=== PATIENT | female | born 1970 | race Caucasian/White ===

== ENCOUNTER → 2018-09-25 | Outpatient (CLI) | payer SELFPAY ==
[2018-09-27 14:01] LABS: HPV Reflexed? NOT INDICATED
== END | disposition home or self-care (01) ==
LOC: LABSPEC 12:46
PROVIDERS: Referring Provider Obstetrics & Gynecology; Visit Provider Obstetrics & Gynecology
DX: Z12.4 Encounter for screening for malignant neoplasm of cervix (principal)
CPT/HCPCS: 87624; 88175; G0145

== ENCOUNTER → 2020-10-26 | Outpatient (CLI) | payer SELFPAY ==
--- NOTE | 2020-10-26 14:30 | CER_PTH ---
PATIENT: JIGNESH GARDUNO LOC: [facility] U#:[id number] AGE/SX: 50/F ROOM: RE10/26/[address]: Dr. Roger Landrum MD : 1970 BED: DIS: 10/26/2020 SPEC #: [id number] RECD: 10/27/20 09:51 STATUS: VIMAL EPPERSON #: [id number] CAITLIN: 10/26/20 14:[address]: Roger Landrum DEPT: SURGICAL PATHOLOGY RECD BY: Maureen Hector Tissues: Uterine cervix, NOS Procedures: Surgery Specimen Level IV HEADER OPERATION: Cervical biopsy PRE-OP DIAGNOSIS: Cervical lesion TISSUE SUBMITTED: Cervical biopsy MICROSCOPIC DIAGNOSIS Cervix, biopsy: Fragments of benign endocervix with mild chronic inflammation. AM:ellen 10/28/2020 MICROSCOPIC DESCRIPTION Slides are reviewed. GROSS DESCRIPTION Received in fixative is one container labeled with the patient's name and designated cervical biopsy. The specimen consists of multiple irregular fragments of light morales soft tissue that in aggregate measure 0.5 x 0.3 x 0.1 cm. The specimen is totally submitted in one cassette. / AM:ellen 10/27/20 TC:3 [facility]: [id number]
[2020-10-29 17:28] LABS: HPV Reflexed? NOT INDICATED
== END | disposition home or self-care (01) ==
LOC: LABSPEC 10-27 09:10
PROVIDERS: Visit Provider Obstetrics & Gynecology
DX: M99.81 Other biomechanical lesions of cervical region (principal)
CPT/HCPCS: 88175; 88305; G0145

== ENCOUNTER → 2022-03-22 | Outpatient (CLI) | payer SELFPAY ==
[2022-03-29 17:01] LABS: HPV APTIMA, High Risk Negative (Negative)
== END | disposition home or self-care (01) ==
PROVIDERS: Visit Provider Student in an Organized Health Care Education/Training Program
DX: Z12.4 Encounter for screening for malignant neoplasm of cervix (principal)
CPT/HCPCS: 87624; 88175; G0145

== ENCOUNTER → 2022-06-27 | Outpatient (CLI) | payer SELFPAY ==
[2022-07-04 18:21] LABS: HPV APTIMA, High Risk Negative (Negative)
== END | disposition home or self-care (01) ==
PROVIDERS: Visit Provider Student in an Organized Health Care Education/Training Program
DX: R87.615 Unsatisfactory cytologic smear of cervix (principal)
CPT/HCPCS: 87624; 88175; G0145

== ENCOUNTER → 2023-08-23 | Outpatient (CLI) | payer SELFPAY ==
--- NOTE | 2023-08-23 09:15 | RAD_ITS ---
INDICATION: LUQ PAIN,L PLEURTIC LIKE PAIN EXAMINATION/TECHNIQUE: X-RAY - XR Chest 2 Views COMPARISON: None available. FINDINGS: LINES/DEVICES: None. LUNGS: Lungs are symmetrically hyperexpanded with coarsened interstitium. Left blunted costophrenic angles on frontal view. Mild right costophrenic angle atelectasis or scarring. No other focal airspace consolidation. Mild peripheral scarring. No pneumothorax. MEDIASTINUM AND CARDIOVASCULAR STRUCTURES: Cardiac silhouette not enlarged. BONES AND SOFT TISSUES: Lateral curvature of the thoracolumbar spine. Moderate bridging osteophytes left lumbar spine.. RAD/Chest PA and Lateral IMPRESSION: Findings consistent with chronic obstructive pulmonary disease. Blunted left costophrenic angle on frontal view which may represent scarring, atelectasis, or focal airspace consolidation. Correlate for left lower lung pneumonia. No gross effusion is seen on lateral view. Radiographic follow-up recommended after treatment to ensure resolution. Comparison with prior imaging would be helpful if available. Electronically Signed: Salty Charles MD at 17:33 EDT ,
== END | disposition home or self-care (01) ==
PROVIDERS: PCP Family Medicine; Referring Provider Family Medicine; Visit Provider Family Medicine
DX: R10.12 Left upper quadrant pain (principal)
CPT/HCPCS: 71046

== ENCOUNTER → 2023-11-26 | Outpatient (CLI) | payer SELFPAY ==
--- NOTE | 2023-11-26 15:17 | CT_ITS ---
INDICATION: pleural effusion EXAMINATION: CT CHEST WITHOUT CONTRAST - CT Chest W/O Contrast Injection TECHNIQUE: Helically acquired images were obtained of the chest. A radiation dose optimization technique was used for this scan. IV Contrast dosage and agent: None. COMPARISON: None. FINDINGS: LUNGS, PLEURA AND LARGE AIRWAYS: Mild bronchiectatic changes and cicatricial atelectasis in the right lower lobe. Tiny calcified granuloma in the right middle lobe . Minor pleural-parenchymal scarring in the upper lobes. There is no pleural effusion. No pneumothorax. THYROID: No thyroid lesions. HEART AND PERICARDIUM: Heart size is normal. No pericardial effusion. CORONARY ARTERIES: Coronary artery calcification VESSELS: Thoracic aorta is not dilated. MEDIASTINUM AND CHIP: No mediastinal or hilar adenopathy. Esophagus is unremarkable. No hiatal hernia. UPPER ABDOMEN: No acute pathology. BONES: No suspicious lytic or blastic abnormality. CT/Chest without Contrast IMPRESSION: Mild bronchiectatic changes and cicatricial atelectasis in the right lower lobe. Electronically Signed: Manuel Tipton MD at 19:54 EDT Reading Location ID and State: [address] [place] [address] Tel , Service support ,
[2023-11-26 16:20] LABS: Erythrocyte Sedimentation Rate 5 mm/hr (0-30)
[2023-11-26 16:26] LABS: CRP < 2.90 mg/L (0.0-3.0)
[2023-11-28 12:09] LABS: ANTINUCLEAR ANTIBODIES DIRECT Positive (Negative)
== END | disposition home or self-care (01) ==
PROVIDERS: PCP Family Medicine; Referring Provider Internal Medicine Pulmonary Disease; Visit Provider Internal Medicine Pulmonary Disease
DX: R07.1 Chest pain on breathing (principal); J45.40 Moderate persistent asthma, uncomplicated; J91.8 Pleural effusion in other conditions classified elsewhere
CPT/HCPCS: 36415; 71250; 85652; 86038; 86140

== ENCOUNTER → 2024-10-15 | Outpatient (CLI) | payer SELFPAY ==
[2024-10-15 15:29] LABS: Absolute Lymphocyte Count 1.64 X10^3/uL (0.83-4.51); Absolute Neutrophil Count 3.5 X10^3/uL (2.0-7.7); Basophil# 0.04 X10^3/uL; Basophil% 0.7 % (0-1); Eosinophil# 0.27 X10^3/uL; Eosinophils% 4.6 % (0-5); Hematocrit 39.7 % (37-47); Hemoglobin 12.8 g/dL (12.0-15.0); Lymphocyte # 1.64 X10^3/ul (0.83-4.51); Lymphocyte % 27.7 % (19-41); Mean Corp Hgb Conc 32.2 g/dL (32-36); Mean Corpuscular Hgb 30.2 pg (27.0-32.0); Mean Corpuscular Volume 93.6 fL (81-99); Mean Platelet Vol. 9.2 fl (6.2-12.0); Monocyte% 8.4 % (0-10); NRBC Flagged by Analyzer 0 % (0-5); Neutrophil # 3.46 X10^3/uL (2.7-7.7); Neutrophil % 58.4 % (47-70); Platelet Count 218 K/mm3 (150-450); RBC Distribution Width CV 14.9 % (11.6-14.6); RBC Distribution Width SD 51.6 fl (35.1-43.9); Red Blood Count 4.24 M/mm3 (4.2-5.4); White Blood Count 5.9 K/mm3 (4.4-11.0)
== END | disposition home or self-care (01) ==
PROVIDERS: PCP Family Medicine; Referring Provider Internal Medicine Pulmonary Disease; Visit Provider Internal Medicine Pulmonary Disease
DX: R05.9 Cough, unspecified (principal)
CPT/HCPCS: 36415; 85025

== ENCOUNTER 2024-10-23 16:47 | Emergency (ER) | payer OTHER, SELFPAY ==
[2024-10-23 16:48] VITALS: BP 134/77; PULSE 91; RESP 16; TEMP 37; O2SAT 100; BMI 16.9
--- NOTE | 2024-10-23 17:01 | EX.ED.DYSGE1 ---
HPI <DOMITILA Agosto - Last Filed: 10/23/24 18:49> History of Present Illness Chief Complaint: Shortness of Breath Narrative Narrative: 54-year-old female with past medical history of recurrent bronchitis presents with shortness of breath. She has had 1 week of fever and cough with green sputum. Her temperatures been running around 100 to 101 ?F. She saw her book canvasser, Dr. Arana, 2 days ago and was prescribed a Z-Ludwig to use in addition to her long-acting inhaler. She is on day 3 of the Z-Ludwig. Today she was walking and had a small cough with phlegm and then felt acutely short of breath for less than a minute. No chest pain. She feels back to normal now. She has no smoking history. No cardiac history. No history of DVT/PE risk factors. PFSH <DOMITILA Agosto - Last Filed: 10/23/24 18:49> PFSH Allergy/AdvReac Type Severity Reaction Status Date / Time No Known Allergies Allergy Verified 10/23/24 16:47 Social History Smoking Status: Never smoker ROS <DOMITILA Agosto - Last Filed: 10/23/24 18:49> ROS ED ROS Narrative Constitutional: Negative for chills, malaise. CVS: Negative for palpitations, chest pain, syncope. Respiratory: Positive for shortness of breath, cough. No orthopnea. GI: Negative for abdominal pain, nausea, vomiting. EXAM <DOMITILA Agosto Last Filed: 10/23/24 18:49> Physical Exam Narrative Exam Narrative: CONST: Patient sitting in no acute distress. EYES: Normal inspection. NECK: Normal inspection. RESP: No respiratory distress, CTAB. CVS: Regular rate and rhythm, no murmur, no gallop. SKIN: Color normal, no rash, warm, dry, intact. EXTREMITIES: Normal appearance, no pedal edema. NEURO: Alert and answering questions appropriately. PSYCH: Normal affect. Const Vital Signs: 10/23/24 16:48 10/23/24 17:07 10/23/24 17:59 Temperature 98.6 F 98.4 F Temperature Source Oral Pulse Rate 91 89 Respiratory Rate 16 18 Respiratory Effort Normal Non-Labored Respiratory Depth Normal Respiratory Pattern Normal Blood Pressure 134/77 H 124/91 H Blood Pressure Mean 96 102 Pulse Ox 100 99 Oxygen Delivery Method Room Air <Dr. Gerson White MD - Last Filed: 10/23/24 17:49> Physical Exam Const Vital Signs: 10/23/24 16:48 10/23/24 17:07 10/23/24 17:59 Temperature 98.6 F 98.4 F Temperature Source Oral Pulse Rate 91 89 Respiratory Rate 16 18 Respiratory Effort Normal Non-Labored Respiratory Depth Normal Respiratory Pattern Normal Blood Pressure 134/77 H 124/91 H Blood Pressure Mean 96 102 Pulse Ox 100 99 Oxygen Delivery Method Room Air MDM <DOMITILA Agosto - Last Filed: 10/23/24 18:49> [facility] MDM Narrative Medical decision making narrative: Differential includes bronchitis or pneumonia, unlikely ACS or PE based on history I have personally performed a face to face assessment of the patient and have reviewed the TREVOR Note. I performed a substantive portion of the visit including all aspects of the following. My quintanilla findings include: History is 54-year-old female history of prior bronchitis. Today was doing outside work close left and felt like she was having trouble breathing. No chest pain. Had a fever around 100. Nonproductive cough. No leg pain or swelling. Exam is [well-appearing 54-year-old female. Vital signs are stable afebrile temperature is 90.6 I rechecked it around 5:40 PM it was nine 9.4. Pulse ox 100% on room air no signs hypoxia. No distress. Clinically looks good. at bedside. H EENT exam pupils round react light. Motions are intact. Extremities. Neck nontender no JVD. No lymphadenopathy. Lungs clear to auscultation bilaterally. Heart regular rate and rhythm no murmur. Rate about 90. Chest wall ribs nontender. Abdomen soft nontender. Moving all 4 extremities. Nontender no edema. Normal strength. Calves nontender no cords. Back nontender. Neurologically she is awake alert.] Medical Decision Making [54-year-old female benign exam. Cough. Currently is on a Zithromax Z-LUDWIG day 3 from her book canvasser. Chest x-ray was obtained. Shows chronic changes. Patient be discharged to home. Finish your antibiotic. Follow-up as needed.] Other additions or changes: [None] Radiography Diagnostic Testing: Clinical Impression(s) from Imaging Studies Chest X-Ray 10/23/24 17:07 IMPRESSION: No focal consolidations. Stable blunting of the left costophrenic angle. Reading Location: [id number] <Dr. Gerson White MD - Last Filed: 10/23/24 17:49> [facility] Narrative Medical decision making narrative: I have personally performed a face to face assessment of the patient and have reviewed the TREVOR Note. I performed a substantive portion of the visit including all aspects of the following. My quintanilla findings include: History is 54-year-old female history of prior bronchitis. Today was doing outside work close left and felt like she was having trouble breathing. No chest pain. Had a fever around 100. Nonproductive cough. No leg pain or swelling. Exam is [well-appearing 54-year-old female. Vital signs are stable afebrile temperature is 90.6 I rechecked it around 5:40 PM it was nine 9.4. Pulse ox 100% on room air no signs hypoxia. No distress. Clinically looks good. at bedside. H EENT exam pupils round react light. Motions are intact. Extremities. Neck nontender no JVD. No lymphadenopathy. Lungs clear to auscultation bilaterally. Heart regular rate and rhythm no murmur. Rate about 90. Chest wall ribs nontender. Abdomen soft nontender. Moving all 4 extremities. Nontender no edema. Normal strength. Calves nontender no cords. Back nontender. Neurologically she is awake alert.] Medical Decision Making [54-year-old female benign exam. Cough. Currently is on a Zithromax Z-LUDWIG day 3 from her book canvasser. Chest x-ray was obtained. Shows chronic changes. Patient be discharged to home. Finish your antibiotic. Follow-up as needed.] Other additions or changes: [None] History & Record Review Discussion w/independent historian: Patient and Family Additional record(s) reviewed:: Prior inpatient record, Prior outpatient record, Prior ED visit and Prior labs Radiography Chest X-Ray - ED: 2 View, Read by ED Physician, Read by Radiologist, Normal, Heart, Lungs, Mediastinum, Bony Structures, No Acute Disease and Chronic Changes Diagnostic Testing: Clinical Impression(s) from Imaging Studies Chest X-Ray 10/23/24 17:07 IMPRESSION: No focal consolidations. Stable blunting of the left costophrenic angle. Reading Location: [facility] [address] Chest x-ray, 2 views, AP and lateral, interpreted both by myself and radiologist. Shows normal cardiac silhouette. There is blunting of the left costophrenic angle which has been chronic and seen on prior films. There is no effusion or pneumonia. Does not look any significantly worse. Discharge Plan Triage Chief Complaint: Shortness of Breath ED Midlevel Provider: Angélica Maxwell ED Provider: Gerson White Dx/Rx/DC Orders Clinical Impression: Bronchitis, Pleural effusion, left Instructions: Acute Bronchitis Primary Care Provider: Gui Song Referrals: Gui Song DO [Primary Care Provider] - Activity Restrictions/Additional Instructions: Finish your azithromycin and use your inhaler. Follow-up with your book canvasser. Print Language: Palestinian Disposition Disposition: Home, Self Care Discharge Date/Time: 10/23/24 18:00
--- NOTE | 2024-10-23 17:07 | RAD_ITS ---
PROCEDURE: CHEST PA AND LATERAL 10/23/2024 REASON FOR EXAM: COUGH TECHNIQUE: Frontal and lateral views of the chest. COMPARISON: 08/23/2023 FINDINGS: Stable blunting of the left costophrenic angle. No significant right base effusion. No pneumothorax. No focal consolidations. Cardiac silhouette is unchanged. No acute fracture. RAD/Chest PA and Lateral IMPRESSION: No focal consolidations. Stable blunting of the left costophrenic angle. Reading Location: [id number]
[2024-10-23 17:59] VITALS: BP 124/91; PULSE 89; RESP 18; TEMP 36.9; O2SAT 99
== END 2024-10-23 18:00 | disposition home or self-care (01) ==
PROVIDERS: Emergency Provider Emergency Medicine; PCP Family Medicine; Visit Provider Emergency Medicine
DX: R06.02 Shortness of breath (principal); J90 Pleural effusion, not elsewhere classified; J40 Bronchitis, not specified as acute or chronic
CPT/HCPCS: 71046; 99282